=== PATIENT | male | born 1950 | race Two or more races ===

== ENCOUNTER → 2021-05-08 | Outpatient (CLI) | payer OTHER ==
[2021-05-08 08:59] LABS: Urine WBC None Seen /hpf (0 - 3)
[2021-05-08 09:13] LABS: Basophils # (auto) 0.1 10 ^3/uL (0-0.2); Basophils % (auto) 0.9 % (0.0-2.0); Eosinophils # (auto) 0.3 10 ^3/uL (0-0.8); Eosinophils % (auto) 5.5 % (0.0-7.0); Hemoglobin 14.2 g/dL (13.5-17.5); Lymphocytes # (auto) 1.2 10 ^3/uL (0.4-5.4); Lymphocytes % (auto) 20.1 % (10.0-50.0); Mean Corpuscular Hemoglobin 31.9 pg (28.0-32.0); Mean Corpuscular Hgb Conc. 34.7 g/dL (32.0-36.0); Mean Corpuscular Volume 91.9 fL (80.0-100.0); Monocytes # (auto) 0.4 10 ^3/uL (0-1.3); Neutrophils # (auto) 4.1 10 ^3/uL (1.6-8.6); Neutrophils % (auto) 66.5 % (37.0-80.0); Nucleated Red Blood Cells % 0.1 %; Red Blood Cells 4.46 10^6/uL (4.5-5.90); Red Cell Distribution Width 14.2 % (11.8-14.3); White Blood Cell 6.1 10^3/uL (4.4-10.8)
[2021-05-08 09:34] LABS: Urine Bacteria NONE SEEN /hpf (None Seen); Urine Blood Negative /uL (Negative); Urine Mucus FEW (None Seen); Urine Specific Gravity 1.011 (1.001-1.035)
[2021-05-08 09:41] LABS: Potassium 3.8 mmol/L (3.5-5.1)
[2021-05-08 09:51] LABS: Albumin 3.8 g/dL (3.4-5.0); BUN/Creatinine Ratio 13.2; Bilirubin, Total 0.6 mg/dL (0.2-1.0); Calcium 9.1 mg/dL (8.5-10.1); Total Protein 7.1 g/dL (6.4-8.2)
== END | disposition home or self-care (01) ==
LOC: LAB 08:23
PROVIDERS: ATTEND Student in an Organized Health Care Education/Training Program
DX: N40.1 Benign prostatic hyperplasia with lower urinary tract symptoms (principal); E11.9 Type 2 diabetes mellitus without complications; I10 Essential (primary) hypertension
CPT/HCPCS: 36415; 80053; 80061; 81001; 82043; 83036; 84153; 84443; 85025; 87086

== ENCOUNTER → 2021-07-02 | Outpatient (CLI) | payer OTHER ==
[2021-07-02 09:05] LABS: Basophils # (auto) 0 10 ^3/uL (0-0.2); Basophils % (auto) 0.9 % (0.0-2.0); Eosinophils # (auto) 0.2 10 ^3/uL (0-0.8); Eosinophils % (auto) 4.4 % (0.0-7.0); Hematocrit 40.6 % (41.0-53.0); Hemoglobin 14.1 g/dL (13.5-17.5); Lymphocytes # (auto) 1.1 10 ^3/uL (0.4-5.4); Mean Corpuscular Hemoglobin 31.5 pg (28.0-32.0); Mean Corpuscular Hgb Conc. 34.8 g/dL (32.0-36.0); Mean Corpuscular Volume 90.7 fL (80.0-100.0); Monocytes # (auto) 0.5 10 ^3/uL (0-1.3); Neutrophils # (auto) 3.2 10 ^3/uL (1.6-8.6); Neutrophils % (auto) 62.7 % (37.0-80.0); Nucleated Red Blood Cells % 0.1 %; Red Blood Cells 4.48 10^6/uL (4.5-5.90); Red Cell Distribution Width 13.7 % (11.8-14.3); White Blood Cell 5.1 10^3/uL (4.4-10.8)
[2021-07-02 09:08] LABS: Urine Bacteria NONE SEEN /hpf (None Seen); Urine Blood Negative /uL (Negative); Urine Specific Gravity 1.016 (1.001-1.035); Urine WBC 1 /hpf (0 - 3)
[2021-07-02 09:36] LABS: Potassium 3.8 mmol/L (3.5-5.1)
[2021-07-02 09:42] LABS: BUN/Creatinine Ratio 13.2; Calcium 9.2 mg/dL (8.5-10.1)
== END | disposition home or self-care (01) ==
LOC: LAB 08:10
PROVIDERS: ATTEND Student in an Organized Health Care Education/Training Program
DX: E11.9 Type 2 diabetes mellitus without complications (principal); I10 Essential (primary) hypertension
CPT/HCPCS: 36415; 80048; 81001; 83036; 85025

== ENCOUNTER → 2021-09-18 | Outpatient (CLI) | payer OTHER ==
[~2021-09-18] VITALS: Ht 167.6 cm; Wt 74.8 kg
[~2021-09-18] MED LIST: ADENOSINE 63 MG in GIVE UN-DILUTED 0 ML IV ONE; CEPH-509 PO
== END | disposition home or self-care (01) ==
LOC: XYW 08:02
PROVIDERS: ATTEND Internal Medicine
DX: I25.10 Atherosclerotic heart disease of native coronary artery without angina pectoris (principal); I10 Essential (primary) hypertension; E78.5 Hyperlipidemia, unspecified; E11.9 Type 2 diabetes mellitus without complications; Z95.5 Presence of coronary angioplasty implant and graft
CPT/HCPCS: 93017; J0153

== ENCOUNTER 2021-09-22 13:07 | Emergency (ER) | payer OTHER ==
[~2021-09-22] VITALS: Ht 167.6 cm; Wt 79.4 kg
[2021-09-22 14:43] VITALS: BP 136/66
[2021-09-22] MEDS ORDERED: CEPH-509 PO (15:35)
[2021-09-22] MEDS ORDERED: TETANUS-DIPTH-ACEL PERTUSSIS 0.5ML SYR Tdap IM ONE (15:45)
== END 2021-09-22 15:51 | disposition home or self-care (01) ==
LOC: ER 13:07
DX: S60.414A Abrasion of right ring finger, initial encounter (principal); I10 Essential (primary) hypertension; E11.9 Type 2 diabetes mellitus without complications; E78.5 Hyperlipidemia, unspecified; Z79.899 Other long term (current) drug therapy; W26.8XXA Contact with other sharp object(s), not elsewhere classified, initial encounter; Y93.89 Activity, other specified; Y92.89 Other specified places as the place of occurrence of the external cause; Y99.8 Other external cause status
CPT/HCPCS: 73120; 90471; 90715

== ENCOUNTER → 2022-05-07 | Outpatient (CLI) | payer OTHER ==
[~2022-05-07] MED LIST changes: -ADENOSINE 63 MG in GIVE UN-DILUTED 0 ML IV ONE
[2022-05-07 08:36] LABS: Urine WBC None Seen /hpf (0 - 3)
[2022-05-07 08:38] LABS: Basophils # (auto) 0.1 10 ^3/uL (0-0.2); Basophils % (auto) 0.8 % (0.0-2.0); Eosinophils # (auto) 0.1 10 ^3/uL (0-0.8); Eosinophils % (auto) 2.1 % (0.0-7.0); Hematocrit 42.3 % (41.0-53.0); Hemoglobin 14.1 g/dL (13.5-17.5); Lymphocytes # (auto) 1.2 10 ^3/uL (0.4-5.4); Lymphocytes % (auto) 18.9 % (10.0-50.0); Mean Corpuscular Hemoglobin 29.4 pg (28.0-32.0); Mean Corpuscular Hgb Conc. 33.4 g/dL (32.0-36.0); Mean Corpuscular Volume 88.1 fL (80.0-100.0); Monocytes # (auto) 0.7 10 ^3/uL (0-1.3); Monocytes % (auto) 10.6 % (0.0-12.0); Neutrophils # (auto) 4.3 10 ^3/uL (1.6-8.6); Neutrophils % (auto) 67.6 % (37.0-80.0); Nucleated Red Blood Cells % 0.1 %; Red Cell Distribution Width 15.4 % (11.8-14.3); White Blood Cell 6.4 10^3/uL (4.4-10.8)
[2022-05-07 08:48] LABS: Urine Bacteria NONE SEEN /hpf (None Seen); Urine Blood Negative /uL (Negative); Urine Specific Gravity 1.002 (1.001-1.035)
[2022-05-07 09:22] LABS: Albumin 4.3 g/dL (3.4-5.0)
[2022-05-07 09:29] LABS: BUN/Creatinine Ratio 14.6; Bilirubin, Total 0.9 mg/dL (0.2-1.0); Calcium 9.1 mg/dL (8.5-10.1); Total Protein 7.7 g/dL (6.4-8.2)
== END | disposition home or self-care (01) ==
LOC: LAB 08:24
PROVIDERS: ATTEND Student in an Organized Health Care Education/Training Program
DX: I10 Essential (primary) hypertension (principal); E11.9 Type 2 diabetes mellitus without complications
CPT/HCPCS: 36415; 80053; 80061; 81001; 83036; 85025

== ENCOUNTER 2022-06-18 13:40 | Emergency (ER) | payer OTHER ==
[~2022-06-18] VITALS: Ht 154.9 cm; Wt 76.0 kg
[2022-06-18 14:39] LABS: Urine Bacteria NONE SEEN /hpf (None Seen); Urine Blood Negative /uL (Negative); Urine Mucus FEW (None Seen); Urine Specific Gravity 1.019 (1.001-1.035); Urine WBC 2 /hpf (0 - 3)
[2022-06-18 14:55] LABS: Calcium 9.5 mg/dL (8.5-10.1); Magnesium 2.4 mg/dL (1.6-2.6); Potassium 3.7 mmol/L (3.5-5.1)
[2022-06-18 14:58] LABS: Basophils # (auto) 0 10 ^3/uL (0-0.2); Basophils % (auto) 0.7 % (0.0-2.0); Eosinophils # (auto) 0.1 10 ^3/uL (0-0.8); Hematocrit 42.3 % (41.0-53.0); Lymphocytes # (auto) 1.5 10 ^3/uL (0.4-5.4); Lymphocytes % (auto) 22.6 % (10.0-50.0); Mean Corpuscular Hemoglobin 29.1 pg (28.0-32.0); Monocytes # (auto) 0.7 10 ^3/uL (0-1.3); Monocytes % (auto) 10.8 % (0.0-12.0); Neutrophils # (auto) 4.1 10 ^3/uL (1.6-8.6); Neutrophils % (auto) 63.9 % (37.0-80.0); Nucleated Red Blood Cells % 0.2 %; Red Blood Cells 4.81 10^6/uL (4.5-5.90); Red Cell Distribution Width 15.1 % (11.8-14.3); White Blood Cell 6.4 10^3/uL (4.4-10.8)
[2022-06-18 14:59] LABS: BUN/Creatinine Ratio 19.1 (10.0-20.0); Bilirubin, Total 0.6 mg/dL (0.2-1.0); Total Protein 7.7 g/dL (6.4-8.2)
[2022-06-18 16:08] VITALS: BP 126/57
== END 2022-06-18 16:10 | disposition home or self-care (01) ==
LOC: ER 13:40
DX: R10.9 Unspecified abdominal pain (principal); K62.89 Other specified diseases of anus and rectum; R30.0 Dysuria; E11.9 Type 2 diabetes mellitus without complications; E78.5 Hyperlipidemia, unspecified; I11.9 Hypertensive heart disease without heart failure; Z98.61 Coronary angioplasty status
CPT/HCPCS: 36415; 74176; 80053; 81001; 83690; 83735; 85025; 93005

== ENCOUNTER → 2022-07-29 | Outpatient (CLI) | payer OTHER ==
[2022-07-29 08:54] LABS: Urine WBC None Seen /hpf (0 - 3)
[2022-07-29 09:20] LABS: Urine Bacteria NONE SEEN /hpf (None Seen); Urine Blood Negative /uL (Negative); Urine Specific Gravity 1.002 (1.001-1.035)
[2022-07-29 09:32] LABS: Basophils # (auto) 0 10 ^3/uL (0-0.2); Basophils % (auto) 0.8 % (0.0-2.0); Eosinophils # (auto) 0.1 10 ^3/uL (0-0.8); Eosinophils % (auto) 3.1 % (0.0-7.0); Hematocrit 42.6 % (41.0-53.0); Hemoglobin 14.3 g/dL (13.5-17.5); Lymphocytes % (auto) 21.8 % (10.0-50.0); Mean Corpuscular Hgb Conc. 33.6 g/dL (32.0-36.0); Mean Corpuscular Volume 86.4 fL (80.0-100.0); Monocytes # (auto) 0.5 10 ^3/uL (0-1.3); Monocytes % (auto) 10.7 % (0.0-12.0); Neutrophils % (auto) 63.6 % (37.0-80.0); Red Blood Cells 4.94 10^6/uL (4.5-5.90); Red Cell Distribution Width 14.8 % (11.8-14.3); White Blood Cell 4.7 10^3/uL (4.4-10.8)
[2022-07-29 10:02] LABS: BUN/Creatinine Ratio 12.5 (10.0-20.0); Calcium 8.7 mg/dL (8.5-10.1)
== END | disposition home or self-care (01) ==
LOC: LAB 08:43
PROVIDERS: ATTEND Student in an Organized Health Care Education/Training Program
DX: E11.9 Type 2 diabetes mellitus without complications (principal); I10 Essential (primary) hypertension
CPT/HCPCS: 36415; 80048; 81001; 83036; 85025

== ENCOUNTER → 2022-09-10 | Outpatient (CLI) | payer OTHER | END | disposition home or self-care (01) | LOC: LAB 09:55 | PROVIDERS: ATTEND Urology | DX: N40.1 Benign prostatic hyperplasia with lower urinary tract symptoms (principal) | CPT/HCPCS: 84153 ==

== ENCOUNTER → 2022-11-09 | Outpatient (CLI) | payer OTHER ==
[2022-11-09 08:17] LABS: Basophils # (auto) 0 10 ^3/uL (0-0.2); Basophils % (auto) 0.8 % (0.0-2.0); Eosinophils # (auto) 0.1 10 ^3/uL (0-0.8); Eosinophils % (auto) 2.5 % (0.0-7.0); Hematocrit 40.4 % (41.0-53.0); Hemoglobin 13.3 g/dL (13.5-17.5); Lymphocytes % (auto) 18.2 % (10.0-50.0); Mean Corpuscular Hemoglobin 28.1 pg (28.0-32.0); Mean Corpuscular Volume 85.2 fL (80.0-100.0); Monocytes # (auto) 0.5 10 ^3/uL (0-1.3); Monocytes % (auto) 8.8 % (0.0-12.0); Neutrophils % (auto) 69.7 % (37.0-80.0); Red Blood Cells 4.74 10^6/uL (4.5-5.90); Red Cell Distribution Width 15.9 % (11.8-14.3); White Blood Cell 5.7 10^3/uL (4.4-10.8)
[2022-11-09 08:33] LABS: Urine Bacteria NONE SEEN /hpf (None Seen); Urine Blood TRACE /uL (Negative); Urine Clarity Clear (Clear); Urine Color Yellow (Yellow); Urine Mucus FEW (None Seen); Urine Protein, UAD 1+ (Negative); Urine Specific Gravity 1.016 (1.001-1.035); Urine Urobilinogen Normal (Negative); Urine WBC 2 /hpf (0 - 3); Urine pH 5.5 (5.0-8.0)
[2022-11-09 09:05] LABS: Albumin 3.8 g/dL (3.4-5.0); Calcium 8.8 mg/dL (8.5-10.1); Potassium 4.4 mmol/L (3.5-5.1)
[2022-11-09 09:11] LABS: Bilirubin, Total 0.4 mg/dL (0.2-1.0)
== END | disposition home or self-care (01) ==
LOC: LAB 08:01
PROVIDERS: ATTEND Student in an Organized Health Care Education/Training Program
DX: I10 Essential (primary) hypertension (principal); E11.9 Type 2 diabetes mellitus without complications; N40.1 Benign prostatic hyperplasia with lower urinary tract symptoms
CPT/HCPCS: 36415; 80053; 81001; 83036; 84153; 85025; 87086

== ENCOUNTER 2023-01-28 08:17 | Day surgery (SDC) | payer OTHER ==
[2023-01-26 15:21] LABS: Basophils # (auto) 0 10 ^3/uL (0-0.2); Basophils % (auto) 0.3 % (0.0-2.0); Eosinophils # (auto) 0.1 10 ^3/uL (0-0.8); Eosinophils % (auto) 0.7 % (0.0-7.0); Hematocrit 40.5 % (41.0-53.0); Hemoglobin 13.4 g/dL (13.5-17.5); Lymphocytes # (auto) 0.5 10 ^3/uL (0.4-5.4); Lymphocytes % (auto) 6.7 % (10.0-50.0); Mean Corpuscular Hemoglobin 28.4 pg (28.0-32.0); Mean Corpuscular Hgb Conc. 33.2 g/dL (32.0-36.0); Mean Corpuscular Volume 85.8 fL (80.0-100.0); Monocytes # (auto) 0.7 10 ^3/uL (0-1.3); Monocytes % (auto) 10.2 % (0.0-12.0); Neutrophils # (auto) 5.9 10 ^3/uL (1.6-8.6); Neutrophils % (auto) 82.1 % (37.0-80.0); Nucleated Red Blood Cells % 0.1 %; Red Blood Cells 4.72 10^6/uL (4.5-5.90); Red Cell Distribution Width 15.6 % (11.8-14.3); White Blood Cell 7.2 10^3/uL (4.4-10.8)
[2023-01-26 15:35] LABS: Urine Bacteria NONE SEEN /hpf (None Seen); Urine Blood TRACE /uL (Negative); Urine Clarity Clear (Clear); Urine Color Yellow (Yellow); Urine Protein, UAD 1+ (Negative); Urine Specific Gravity 1.013 (1.001-1.035); Urine Urobilinogen Normal (Negative); Urine WBC 2 /hpf (0 - 3); Urine pH 6.5 (5.0-8.0)
[2023-01-26 15:39] LABS: INR 1.15 (0.9-1.15); Partial Thromboplastin Time 34.1 SEC (24.5-34.5)
[2023-01-26 16:04] LABS: Alanine Aminotransferase 22 U/L (7-40); Albumin 4.7 g/dL (3.2-4.8); Alkaline Phosphatase 59 U/L (46-116); Anion Gap 6 (5-15); Aspartate Aminotransferase 19 U/L (13-40); BUN/Creatinine Ratio 8.6 (10.0-20.0); Bilirubin, Total 1.1 mg/dL (0.2-1.0); Blood Urea Nitrogen 9 mg/dL (9-23); Calcium 9.3 mg/dL (8.7-10.4); Carbon Dioxide 26 mmol/L (20-30); Chloride 98 mmol/L (98-107); Glucose 98 mg/dL (74-106); Potassium 3.5 mmol/L (3.5-5.1); Sodium 130 mmol/L (136-145); Total Protein 7.3 g/dL (5.7-8.2)
[~2023-01-28] VITALS: Ht 185.4 cm; Wt 74.4 kg
[~2023-01-28 08:17] MED LIST changes: +AMLO1TAB23 PO; +ASPI1TAB20 PO; -CEPH-509 PO; +CLOP75TA28 PO; +METF-372 PO; +METO-6 PO; +ROSU1TAB15 PO; +TAMS0.4C36 PO
[2023-01-28] MEDS ORDERED: CIPROFLOXACIN 400MG/200ML 200 ML IV ONE (08:53)
[2023-01-28] MEDS ORDERED: DexAMETHasone SOD PHOS 10MG/1ML VIAL INJ ONE (09:55)
[2023-01-28] MEDS ORDERED: PROPOFOL 10 MG/ML 20 ML IV ONE (09:55)
[2023-01-28] MEDS ORDERED: GLYCOPYRROLATE 0.2 MG/ML 1ML VIAL ONE (09:55)
[2023-01-28] MEDS ORDERED: ONDANSETRON HCL 4 MG/2 ML VIAL ONE (09:55)
[2023-01-28] MEDS ORDERED: fentaNYL CITRATE 100 MCG/2 ML VL ONE (09:55)
[2023-01-28] MEDS ORDERED: KETOROLAC TROMETH 30 MG/ML 1ML VIAL ONE (09:55)
[2023-01-28 11:12] VITALS: TEMP 97.9; O2SAT 100
[2023-01-28 12:00] VITALS: BP 122/56; PULSE 60; RESP 12; O2SAT 97
== END 2023-01-28 12:02 | disposition home or self-care (01) ==
LOC: SUR 08:17
PROVIDERS: ATTEND Urology
DX: N40.1 Benign prostatic hyperplasia with lower urinary tract symptoms (principal); R35.1 Nocturia; E11.9 Type 2 diabetes mellitus without complications; Z79.84 Long term (current) use of oral hypoglycemic drugs
CPT/HCPCS: 36415; 52441; 52442; 80053; 81001; 82962; 85025; 85610; 85730; 87086; J0744; J1100; J1885; J2405; J2704; J3010; J7030; L8699

== ENCOUNTER → 2023-02-01 | Outpatient (CLI) | payer OTHER ==
[2023-02-01 08:33] LABS: Basophils # (auto) 0 10 ^3/uL (0-0.2); Basophils % (auto) 0.8 % (0.0-2.0); Eosinophils # (auto) 0.1 10 ^3/uL (0-0.8); Eosinophils % (auto) 1.5 % (0.0-7.0); Hematocrit 40.5 % (41.0-53.0); Hemoglobin 13.5 g/dL (13.5-17.5); Lymphocytes % (auto) 18.6 % (10.0-50.0); Mean Corpuscular Hemoglobin 28.3 pg (28.0-32.0); Mean Corpuscular Hgb Conc. 33.2 g/dL (32.0-36.0); Mean Corpuscular Volume 85.1 fL (80.0-100.0); Monocytes # (auto) 0.6 10 ^3/uL (0-1.3); Monocytes % (auto) 11.2 % (0.0-12.0); Neutrophils # (auto) 3.6 10 ^3/uL (1.6-8.6); Neutrophils % (auto) 67.9 % (37.0-80.0); Nucleated Red Blood Cells % 0.1 %; Red Blood Cells 4.76 10^6/uL (4.5-5.90); Red Cell Distribution Width 15.7 % (11.8-14.3); White Blood Cell 5.3 10^3/uL (4.4-10.8)
[2023-02-01 08:51] LABS: Urine Bacteria NONE SEEN /hpf (None Seen); Urine Blood 3+ /uL (Negative); Urine Clarity Clear (Clear); Urine Color Yellow (Yellow); Urine Protein, UAD 1+ (Negative); Urine Specific Gravity 1.009 (1.001-1.035); Urine Urobilinogen Normal (Negative); Urine WBC 5 /hpf (0 - 3); Urine pH 6.5 (5.0-8.0)
[2023-02-01 09:17] LABS: Alanine Aminotransferase 37 U/L (7-40); Albumin 4.4 g/dL (3.2-4.8); Alkaline Phosphatase 45 U/L (46-116); Anion Gap 4 (5-15); Aspartate Aminotransferase 29 U/L (13-40); BUN/Creatinine Ratio 9.5 (10.0-20.0); Blood Urea Nitrogen 11 mg/dL (9-23); Calcium 9.3 mg/dL (8.5-10.1); Carbon Dioxide 29 mmol/L (20-30); Chloride 100 mmol/L (98-107); Cholesterol 83 mg/dL (< 200); Glucose 122 mg/dL (74-106); LDL Cholesterol 35 mg/dL (< 100); Potassium 3.9 mmol/L (3.5-5.1); Sodium 133 mmol/L (136-145); Triglycerides 92 mg/dL (< 150)
[2023-02-01 09:18] LABS: Bilirubin, Total 0.7 mg/dL (0.2-1.0); HDL Cholesterol 30 mg/dL (40-59); Total Protein 6.7 g/dL (5.7-8.2)
== END | disposition home or self-care (01) ==
LOC: LAB 08:16
DX: I10 Essential (primary) hypertension (principal); E11.8 Type 2 diabetes mellitus with unspecified complications
CPT/HCPCS: 36415; 80053; 80061; 81001; 82306; 83036; 84443; 85025

== ENCOUNTER 2023-02-22 14:37 | Inpatient (IN) | payer OTHER ==
[~2023-02-22] VITALS: Ht 188 cm; Wt 75.1 kg
[2023-02-22 15:01] LABS: Basophils # (auto) 0.1 10 ^3/uL (0-0.2); Eosinophils # (auto) 0.2 10 ^3/uL (0-0.8); Hemoglobin 13.8 g/dL (13.5-17.5); Lymphocytes # (auto) 1.4 10 ^3/uL (0.4-5.4); Lymphocytes % (auto) 25.6 % (10.0-50.0); Mean Corpuscular Hemoglobin 28.2 pg (28.0-32.0); Mean Corpuscular Hgb Conc. 32.9 g/dL (32.0-36.0); Mean Corpuscular Volume 85.9 fL (80.0-100.0); Monocytes # (auto) 0.6 10 ^3/uL (0-1.3); Monocytes % (auto) 10.5 % (0.0-12.0); Neutrophils # (auto) 3.2 10 ^3/uL (1.6-8.6); Neutrophils % (auto) 59.9 % (37.0-80.0); Nucleated Red Blood Cells % 0.1 %; Red Blood Cells 4.89 10^6/uL (4.5-5.90); Red Cell Distribution Width 15.4 % (11.8-14.3); White Blood Cell 5.4 10^3/uL (4.4-10.8)
[2023-02-22 15:17] LABS: INR 1.09 (0.9-1.15); Partial Thromboplastin Time 33.7 SEC (24.5-34.5); Prothrombin Time 11.4 sec (9.3-11.8)
[2023-02-22 15:21] LABS: Alanine Aminotransferase 19 U/L (7-40); Alkaline Phosphatase 61 U/L (46-116); Calcium 9.6 mg/dL (8.7-10.4)
[2023-02-22 15:22] LABS: Albumin 4.7 g/dL (3.2-4.8); Anion Gap 8 (5-15); Aspartate Aminotransferase 18 U/L (13-40); BUN/Creatinine Ratio 13.3 (10.0-20.0); Bilirubin, Total 0.6 mg/dL (0.2-1.0); Blood Urea Nitrogen 13 mg/dL (9-23); Carbon Dioxide 24 mmol/L (20-30); Chloride 103 mmol/L (98-107); Glucose 145 mg/dL (74-106); Sodium 135 mmol/L (136-145); Total Protein 6.9 g/dL (5.7-8.2)
[2023-02-22 15:30] LABS: Urine Bacteria NONE SEEN /hpf (None Seen); Urine Blood TRACE /uL (Negative); Urine Clarity Clear (Clear); Urine Color Colorless (Yellow); Urine Protein, UAD TRACE (Negative); Urine Specific Gravity 1.008 (1.001-1.035); Urine Urobilinogen Normal (Negative); Urine WBC 1 /hpf (0 - 3); Urine pH 5.5 (5.0-8.0)
[2023-02-22] MEDS ORDERED: NITROGLYCERIN 0.4 MG SL TAB SL ONE (15:45)
[2023-02-22] MEDS ORDERED: ASPirin 325 MG TAB PO ONE (15:45)
[2023-02-22] MEDS ORDERED: ONDANSETRON HCL 4 MG/2 ML VIAL IV PRN (16:45)
[2023-02-22] MEDS ORDERED: MORPHINE SULFATE INJ 2 MG/ml SYRG IV PRN (16:45)
[2023-02-22] MEDS ORDERED: NITROGLYCERIN 0.4 MG SL TAB SL PRN (16:45)
[2023-02-22] MEDS ORDERED: ACETAMINOPHEN 325 MG TAB PO PRN (16:45)
[2023-02-22] MEDS ORDERED: FIN5T (16:49)
[2023-02-22 19:26] VITALS: PULSE 56; RESP 18; O2SAT 98
[2023-02-22 21:31] VITALS: BP 128/71; PULSE 56; PULSE 81; RESP 16; RESP 18; TEMP 98
[2023-02-22 22:00] VITALS: BP 128/71; PULSE 56; RESP 19; TEMP 97.9; O2SAT 99
[2023-02-23] VITALS (13 sets, daily range): BP systolic 96–147; BP diastolic 56–75; PULSE 55–64; RESP 12–20; TEMP 97.5–98.3; O2SAT 96–100
[2023-02-23 06:07] LABS: Albumin 4.1 g/dL (3.2-4.8); Alkaline Phosphatase 44 U/L (46-116); Anion Gap 5 (5-15); Aspartate Aminotransferase 14 U/L (13-40); BUN/Creatinine Ratio 9.6 (10.0-20.0); Bilirubin, Total 0.6 mg/dL (0.2-1.0); Blood Urea Nitrogen 11 mg/dL (9-23); Calcium 9.3 mg/dL (8.5-10.1); Carbon Dioxide 25 mmol/L (20-30); Chloride 107 mmol/L (98-107); Glucose 123 mg/dL (74-106); Sodium 137 mmol/L (136-145)
[2023-02-23 06:08] LABS: Total Protein 6.2 g/dL (5.7-8.2)
[2023-02-23 06:29] LABS: Alanine Aminotransferase 18 U/L (7-40)
[2023-02-23 06:38] LABS: Basophils # (auto) 0 10 ^3/uL (0-0.2); Basophils % (auto) 0.8 % (0.0-2.0); Eosinophils # (auto) 0.2 10 ^3/uL (0-0.8); Eosinophils % (auto) 3.4 % (0.0-7.0); Hematocrit 39.1 % (41.0-53.0); Hemoglobin 12.8 g/dL (13.5-17.5); Lymphocytes # (auto) 1.2 10 ^3/uL (0.4-5.4); Lymphocytes % (auto) 25.3 % (10.0-50.0); Mean Corpuscular Hgb Conc. 32.6 g/dL (32.0-36.0); Mean Corpuscular Volume 85.8 fL (80.0-100.0); Monocytes # (auto) 0.6 10 ^3/uL (0-1.3); Monocytes % (auto) 13.2 % (0.0-12.0); Neutrophils # (auto) 2.7 10 ^3/uL (1.6-8.6); Neutrophils % (auto) 57.3 % (37.0-80.0); Nucleated Red Blood Cells % 0.2 %; Red Blood Cells 4.56 10^6/uL (4.5-5.90); Red Cell Distribution Width 15.4 % (11.8-14.3); White Blood Cell 4.7 10^3/uL (4.4-10.8)
[2023-02-23] MEDS ORDERED: DEXTROSE (50%) 50ML SYRG IV PRN (09:45)
[2023-02-23] MEDS: CLOPIDOGREL BISULFATE 75 MG TAB PO SCH (09:46)
[2023-02-23] MEDS: PANTOPRAZOLE 40 MG TAB PO SCH (09:46)
[2023-02-23] MEDS: FINASTERIDE 5 MG TAB PO SCH (09:47)
[2023-02-23] MEDS: METOPROLOL SUCCINATE XL 50 MG TAB PO SCH (09:47)
[2023-02-23] MEDS: TAMSULOSIN HYDROCHLORIDE 0.4 MG CAP PO SCH (09:47)
[2023-02-23] MEDS: ASPirin-EC 81 mg tab PO SCH (09:48)
[2023-02-23] MEDS: LOSARTAN POTASSIUM 25 MG TAB PO SCH (09:51)
[2023-02-23] MEDS ORDERED: amLODIPine BESYLATE 5 MG TAB PO SCH (10:00)
[2023-02-23] MEDS: LIDOCAINE 5% TOPICAL PATCH TOP SCH (10:00)
[2023-02-23] MEDS ORDERED: Rosuvastatin Calcium 40 MG PO SCH (10:00)
[2023-02-23] MEDS ORDERED: ONDANSETRON HCL 4 MG/2 ML VIAL IV ONE (11:15)
[2023-02-23] MEDS: ACCU-CHEK COMFORT CURVE STRIP VI SCH ×3 (11:30→22:00)
[2023-02-23] MEDS: InsuLIN REG 1unit/0.01ml Soln (100units/ml) SC SCH ×3 (11:30→21:10)
[2023-02-23] MEDS ORDERED: HEPARIN SODIUM (PORCINE) 5000 UNITS/ML 1ML VIAL ONE (11:48)
[2023-02-23] MEDS ORDERED: ANGIOMAX 250 MG VIAL IV ONE (11:48)
[2023-02-23] MEDS ORDERED: VERAPAMIL 2.5MG/ML INJ 2ML VIAL IV ONE (11:48)
[2023-02-23] MEDS ORDERED: fentaNYL CITRATE 100 MCG/2 ML VL ONE (11:48)
[2023-02-23] MEDS ORDERED: SODIUM CHL 0.9% 50 ML ONE (11:49)
[2023-02-23] MEDS ORDERED: MIDAZOLAM HCL 2MG/2ML 2ml VIAL (1mg/ml) ONE (11:49)
[2023-02-23] MEDS ORDERED: IOHEXOL 350 MG/ML 100ML IJ ONE ×3 (11:49→12:39)
[2023-02-23] MEDS ORDERED: EPINEPHrine HCL 1 MG/10 ML SYRG ONE (12:23)
[2023-02-23] MEDS ORDERED: ATROPINE SULF 1 MG/10ml SYR ONE (12:23)
[2023-02-23] MEDS ORDERED: ATORVASTATIN 20 MG TAB PO SCH (22:00)
[2023-02-24 05:00] VITALS: BP 107/62; PULSE 57; RESP 17; TEMP 98; O2SAT 98
[2023-02-24 06:13] LABS: Basophils # (auto) 0 10 ^3/uL (0-0.2); Basophils % (auto) 0.5 % (0.0-2.0); Eosinophils # (auto) 0.2 10 ^3/uL (0-0.8); Eosinophils % (auto) 2.3 % (0.0-7.0); Hematocrit 37.6 % (41.0-53.0); Hemoglobin 12.5 g/dL (13.5-17.5); Lymphocytes % (auto) 14.2 % (10.0-50.0); Mean Corpuscular Hemoglobin 28.3 pg (28.0-32.0); Mean Corpuscular Hgb Conc. 33.2 g/dL (32.0-36.0); Mean Corpuscular Volume 85.2 fL (80.0-100.0); Monocytes # (auto) 0.7 10 ^3/uL (0-1.3); Monocytes % (auto) 10.6 % (0.0-12.0); Neutrophils # (auto) 4.9 10 ^3/uL (1.6-8.6); Neutrophils % (auto) 72.4 % (37.0-80.0); Nucleated Red Blood Cells % 0.1 %; Red Blood Cells 4.41 10^6/uL (4.5-5.90); Red Cell Distribution Width 15.4 % (11.8-14.3); White Blood Cell 6.8 10^3/uL (4.4-10.8)
[2023-02-24 06:24] LABS: Alanine Aminotransferase 22 U/L (7-40); Alkaline Phosphatase 44 U/L (46-116); Anion Gap 7 (5-15); Aspartate Aminotransferase 15 U/L (13-40); BUN/Creatinine Ratio 11.3 (10.0-20.0); Blood Urea Nitrogen 12 mg/dL (9-23); Calcium 9.5 mg/dL (8.5-10.1); Carbon Dioxide 27 mmol/L (20-30); Chloride 103 mmol/L (98-107); Glucose 124 mg/dL (74-106); Potassium 4.1 mmol/L (3.5-5.1); Sodium 137 mmol/L (136-145)
[2023-02-24 06:25] LABS: Bilirubin, Total 0.7 mg/dL (0.2-1.0); Total Protein 6.1 g/dL (5.7-8.2)
[2023-02-24] MEDS: InsuLIN REG 1unit/0.01ml Soln (100units/ml) SC SCH ×2 (07:00→11:30)
[2023-02-24] MEDS: ACCU-CHEK COMFORT CURVE STRIP VI SCH ×2 (07:06→11:30)
[2023-02-24 07:30] VITALS: PULSE 55; RESP 18; O2SAT 98
[2023-02-24 08:00] VITALS: PULSE 55
[2023-02-24] MEDS ORDERED: NITR0.4S29 SL (08:50)
[2023-02-24 09:00] VITALS: BP 112/58; PULSE 55; RESP 20; TEMP 98.3; O2SAT 98
[2023-02-24] MEDS: ASPirin-EC 81 mg tab PO SCH (09:53)
[2023-02-24] MEDS: METOPROLOL SUCCINATE XL 50 MG TAB PO SCH (09:54)
[2023-02-24] MEDS: TAMSULOSIN HYDROCHLORIDE 0.4 MG CAP PO SCH (09:54)
[2023-02-24] MEDS: LOSARTAN POTASSIUM 25 MG TAB PO SCH (09:55)
[2023-02-24] MEDS: FINASTERIDE 5 MG TAB PO SCH (09:55)
[2023-02-24] MEDS: PANTOPRAZOLE 40 MG TAB PO SCH (09:55)
[2023-02-24] MEDS: CLOPIDOGREL BISULFATE 75 MG TAB PO SCH (09:55)
[2023-02-24] MEDS: LIDOCAINE 5% TOPICAL PATCH TOP SCH (10:00)
== END 2023-02-24 12:18 | disposition home or self-care (01) | DRG 322 ==
LOC: ER 14:37 → TELE 16:41 → TELE-EAST 21:45
PROVIDERS: ADMIT Internal Medicine; ATTEND Internal Medicine
PROC: 027034Z Dilation of Coronary Artery, One Artery with Drug-eluting Intraluminal Device, Percutaneous Approach (ICD-10-PCS; principal; 2023-02-23)
PROC: 4A023N7 Measurement of Cardiac Sampling and Pressure, Left Heart, Percutaneous Approach (ICD-10-PCS; 2023-02-23)
PROC: B211YZZ Fluoroscopy of Multiple Coronary Arteries using Other Contrast (ICD-10-PCS; 2023-02-23)
DX: T82.855A Stenosis of coronary artery stent, initial encounter (principal); I25.110 Atherosclerotic heart disease of native coronary artery with unstable angina pectoris; I10 Essential (primary) hypertension; E78.5 Hyperlipidemia, unspecified; N40.0 Benign prostatic hyperplasia without lower urinary tract symptoms; E11.9 Type 2 diabetes mellitus without complications; K21.9 Gastro-esophageal reflux disease without esophagitis; Y83.1 Surgical operation with implant of artificial internal device as the cause of abnormal reaction of the patient, or of later complication, without mention of misadventure at the time of the procedure; Z79.02 Long term (current) use of antithrombotics/antiplatelets; Z82.49 Family history of ischemic heart disease and other diseases of the circulatory system
CPT/HCPCS: 36415; 71045; 80053; 81001; 82962; 84484; 85025; 85379; 85610; 85730; 93005; 93306; 97116; 97163; 97530; 99152; G0378; J1815; J2250; J2405

== ENCOUNTER 2023-03-26 11:30 | Emergency (ER) | payer OTHER ==
[~2023-03-26] VITALS: Ht 167.6 cm; Wt 73.9 kg
[~2023-03-26 11:30] MED LIST changes: +FIN5T; +NITR0.4S29 SL
[2023-03-26 13:35] LABS: Basophils # (auto) 0 10 ^3/uL (0-0.2); Basophils % (auto) 0.6 % (0.0-2.0); Eosinophils # (auto) 0.1 10 ^3/uL (0-0.8); Eosinophils % (auto) 1.2 % (0.0-7.0); Hematocrit 39.7 % (41.0-53.0); Hemoglobin 13.1 g/dL (13.5-17.5); Lymphocytes # (auto) 1.1 10 ^3/uL (0.4-5.4); Lymphocytes % (auto) 17.6 % (10.0-50.0); Mean Corpuscular Hemoglobin 28.2 pg (28.0-32.0); Mean Corpuscular Hgb Conc. 33.1 g/dL (32.0-36.0); Mean Corpuscular Volume 85.2 fL (80.0-100.0); Monocytes # (auto) 0.7 10 ^3/uL (0-1.3); Monocytes % (auto) 11.4 % (0.0-12.0); Neutrophils # (auto) 4.3 10 ^3/uL (1.6-8.6); Neutrophils % (auto) 69.2 % (37.0-80.0); Nucleated Red Blood Cells % 0.1 %; Red Blood Cells 4.66 10^6/uL (4.5-5.90); Red Cell Distribution Width 15.3 % (11.8-14.3); White Blood Cell 6.2 10^3/uL (4.4-10.8)
[2023-03-26 14:06] LABS: Alanine Aminotransferase 18 U/L (7-40); Albumin 4.6 g/dL (3.2-4.8); Alkaline Phosphatase 64 U/L (46-116); Anion Gap 5 (5-15); Aspartate Aminotransferase 13 U/L (13-40); BUN/Creatinine Ratio 12.9 (10.0-20.0); Bilirubin, Total 0.7 mg/dL (0.2-1.0); Blood Urea Nitrogen 11 mg/dL (9-23); Calcium 9.6 mg/dL (8.7-10.4); Carbon Dioxide 28 mmol/L (20-30); Chloride 102 mmol/L (98-107); Glucose 106 mg/dL (74-106); Lipase 51 U/L (12-53); Potassium 4.3 mmol/L (3.5-5.1); Sodium 135 mmol/L (136-145)
[2023-03-26 14:07] LABS: Total Protein 6.9 g/dL (5.7-8.2)
[2023-03-26] MEDS ORDERED: IBU600T PO (14:51)
[2023-03-26] MEDS ORDERED: HYDROcodone-ACET 10/325MG TAB PO ONE (15:00)
[2023-03-26 15:11] VITALS: BP 133/69; PULSE 80; RESP 18; O2SAT 100
== END 2023-03-26 15:12 | disposition home or self-care (01) ==
LOC: ER 11:30
DX: R10.9 Unspecified abdominal pain (principal); I10 Essential (primary) hypertension; E11.9 Type 2 diabetes mellitus without complications; Z86.73 Personal history of transient ischemic attack (TIA), and cerebral infarction without residual deficits; Z98.61 Coronary angioplasty status
CPT/HCPCS: 36415; 74176; 80053; 83690; 84484; 85025

== ENCOUNTER 2023-06-08 09:41 | Day surgery (SDC) | payer OTHER ==
[2023-06-03 09:34] LABS: Basophils # (auto) 0.1 10 ^3/uL (0-0.2); Eosinophils # (auto) 0.1 10 ^3/uL (0-0.8); Eosinophils % (auto) 2.1 % (0.0-7.0); Hemoglobin 13.9 g/dL (13.5-17.5); Lymphocytes # (auto) 1.3 10 ^3/uL (0.4-5.4); Lymphocytes % (auto) 22.8 % (10.0-50.0); Mean Corpuscular Hemoglobin 28.7 pg (28.0-32.0); Mean Corpuscular Hgb Conc. 33.2 g/dL (32.0-36.0); Mean Corpuscular Volume 86.4 fL (80.0-100.0); Monocytes # (auto) 0.5 10 ^3/uL (0-1.3); Monocytes % (auto) 9.4 % (0.0-12.0); Neutrophils # (auto) 3.6 10 ^3/uL (1.6-8.6); Neutrophils % (auto) 64.7 % (37.0-80.0); Nucleated Red Blood Cells % 0.1 %; Red Blood Cells 4.86 10^6/uL (4.5-5.90); Red Cell Distribution Width 15.8 % (11.8-14.3); White Blood Cell 5.6 10^3/uL (4.4-10.8)
[2023-06-03 09:48] LABS: INR 1.11 (0.9-1.15); Partial Thromboplastin Time 33.3 SEC (24.5-34.5); Prothrombin Time 11.6 sec (9.3-11.8)
[2023-06-03 10:22] LABS: Alanine Aminotransferase 19 U/L (7-40); Albumin 4.8 g/dL (3.2-4.8); Alkaline Phosphatase 57 U/L (46-116); Anion Gap 4 (5-15); Aspartate Aminotransferase 18 U/L (13-40); BUN/Creatinine Ratio 9.4 (10.0-20.0); Bilirubin, Total 0.7 mg/dL (0.2-1.0); Blood Urea Nitrogen 9 mg/dL (9-23); Calcium 9.8 mg/dL (8.5-10.1); Carbon Dioxide 27 mmol/L (20-30); Chloride 105 mmol/L (98-107); Glucose 114 mg/dL (74-106); Potassium 4.2 mmol/L (3.5-5.1); Sodium 136 mmol/L (136-145); Total Protein 7.2 g/dL (5.7-8.2)
[~2023-06-08] VITALS: Ht 170.2 cm; Wt 73.5 kg
[2023-06-08] MEDS ORDERED: SODIUM CHLORIDE LOCK 10 ML ONE (09:48)
[2023-06-08 11:18] VITALS: O2SAT 100
[2023-06-08] MEDS: fentaNYL CITRATE 100 MCG/2 ML VL ONE (11:22)
[2023-06-08] MEDS: diphenhdrAMINE HCL 50 MG/1 ML VL ONE (11:22)
[2023-06-08] MEDS: MIDAZOLAM HCL 5 MG/ML-1ML VIAL ONE (11:22)
[2023-06-08 11:45] VITALS: RESP 8; TEMP 98.9; O2SAT 100
[2023-06-08 12:31] VITALS: BP 115/60; PULSE 67; RESP 10; O2SAT 97
== END 2023-06-08 12:45 | disposition home or self-care (01) ==
LOC: GI 09:41
PROVIDERS: ATTEND Internal Medicine Gastroenterology
DX: K59.09 Other constipation (principal); D12.7 Benign neoplasm of rectosigmoid junction; D12.3 Benign neoplasm of transverse colon; K57.30 Diverticulosis of large intestine without perforation or abscess without bleeding; K64.8 Other hemorrhoids; K63.89 Other specified diseases of intestine; E11.9 Type 2 diabetes mellitus without complications; E78.5 Hyperlipidemia, unspecified; I25.10 Atherosclerotic heart disease of native coronary artery without angina pectoris; I10 Essential (primary) hypertension; Z96.651 Presence of right artificial knee joint; Z86.010 Personal history of colon polyps; Z82.49 Family history of ischemic heart disease and other diseases of the circulatory system; Z79.82 Long term (current) use of aspirin; Z79.01 Long term (current) use of anticoagulants; Z79.84 Long term (current) use of oral hypoglycemic drugs; Z79.899 Other long term (current) drug therapy; Z98.890 Other specified postprocedural states; Z88.2 Allergy status to sulfonamides
CPT/HCPCS: 36415; 45380; 45385; 80053; 82962; 85025; 85610; 85730; 88305; J1200; J2250; J3010; J7030; 99152

== ENCOUNTER → 2023-07-27 | Outpatient (CLI) | payer OTHER ==
[~2023-07-27] MED LIST changes: -ROSU1TAB15 PO; +ROSU40TA47 PO
[2023-07-27 09:25] LABS: Urine Bacteria None Seen /hpf (None Seen)
[2023-07-27 09:29] LABS: Basophils # (auto) 0 10 ^3/uL (0-0.2); Basophils % (auto) 0.8 % (0.0-2.0); Eosinophils # (auto) 0.1 10 ^3/uL (0-0.8); Eosinophils % (auto) 1.6 % (0.0-7.0); Hematocrit 40.6 % (41.0-53.0); Hemoglobin 13.3 g/dL (13.5-17.5); Lymphocytes # (auto) 1.2 10 ^3/uL (0.4-5.4); Lymphocytes % (auto) 20.6 % (10.0-50.0); Mean Corpuscular Hemoglobin 27.6 pg (28.0-32.0); Mean Corpuscular Hgb Conc. 32.7 g/dL (32.0-36.0); Mean Corpuscular Volume 84.5 fL (80.0-100.0); Monocytes # (auto) 0.6 10 ^3/uL (0-1.3); Monocytes % (auto) 9.5 % (0.0-12.0); Neutrophils % (auto) 67.5 % (37.0-80.0); Red Cell Distribution Width 15.2 % (11.8-14.3); White Blood Cell 5.9 10^3/uL (4.4-10.8)
[2023-07-27 09:35] LABS: Urine Blood Negative /uL (Negative); Urine Clarity Clear (Clear); Urine Color Yellow (Yellow); Urine Mucus FEW (None Seen); Urine Protein, UAD 1+ (Negative); Urine Specific Gravity 1.021 (1.001-1.035); Urine Urobilinogen Normal (Negative); Urine WBC 1 /hpf (0 - 3); Urine pH 5.5 (5.0-9.0)
[2023-07-27 10:09] LABS: Creatinine, Urine 108.99 mg/dL (30.0-125.0)
[2023-07-27 10:13] LABS: Alanine Aminotransferase 18 U/L (7-40); Albumin 4.6 g/dL (3.2-4.8); Alkaline Phosphatase 53 U/L (46-116); Anion Gap 6 (5-15); Aspartate Aminotransferase 20 U/L (13-40); BUN/Creatinine Ratio 13.5 (10.0-20.0); Bilirubin, Total 0.8 mg/dL (0.2-1.0); Blood Urea Nitrogen 13 mg/dL (9-23); Calcium 9.7 mg/dL (8.5-10.1); Carbon Dioxide 25 mmol/L (20-30); Chloride 104 mmol/L (98-107); Cholesterol 126 mg/dL (< 200); Glucose 123 mg/dL (74-106); HDL Cholesterol 37 mg/dL (40-59); LDL Cholesterol 74 mg/dL (< 100); Sodium 135 mmol/L (136-145); Total Protein 7.3 g/dL (5.7-8.2); Triglycerides 113 mg/dL (< 150)
== END | disposition home or self-care (01) ==
LOC: LAB 09:16
PROVIDERS: ATTEND Student in an Organized Health Care Education/Training Program
DX: I10 Essential (primary) hypertension (principal); E11.9 Type 2 diabetes mellitus without complications; N40.0 Benign prostatic hyperplasia without lower urinary tract symptoms
CPT/HCPCS: 36415; 80053; 80061; 81001; 82043; 82570; 83036; 84153; 85025

== ENCOUNTER → 2023-09-22 | Outpatient (CLI) | payer OTHER | END | disposition home or self-care (01) | LOC: LAB 07:53 | PROVIDERS: ATTEND Urology | DX: N40.1 Benign prostatic hyperplasia with lower urinary tract symptoms (principal) | CPT/HCPCS: 84153 ==

== ENCOUNTER → 2024-01-28 | Outpatient (CLI) | payer OTHER ==
[~2024-01-28] MED LIST changes: -TAMS0.4C36 PO; +TAMS0.4C39 PO
[2024-01-28 08:19] LABS: Urine Bacteria None Seen /hpf (None Seen)
[2024-01-28 08:26] LABS: Basophils # (auto) 0.1 10 ^3/uL (0-0.2); Neutrophils # (auto) 3.6 10 ^3/uL (1.6-8.6); Nucleated Red Blood Cells % 0.1 %; Red Blood Cells 5.16 10^6/uL (4.5-5.90); Red Cell Distribution Width 17.2 % (11.8-14.3)
[2024-01-28 08:28] LABS: Basophils % (auto) 1.1 % (0.0-2.0); Eosinophils # (auto) 0.2 10 ^3/uL (0-0.8); Eosinophils % (auto) 2.6 % (0.0-7.0); Hematocrit 41.8 % (41.0-53.0); Hemoglobin 13.4 g/dL (13.5-17.5); Lymphocytes # (auto) 1.4 10 ^3/uL (0.4-5.4); Lymphocytes % (auto) 23.6 % (10.0-50.0); Mean Corpuscular Hgb Conc. 32.2 g/dL (32.0-36.0); Mean Corpuscular Volume 80.9 fL (80.0-100.0); Monocytes # (auto) 0.6 10 ^3/uL (0-1.3); Monocytes % (auto) 10.7 % (0.0-12.0); Platelet Count (auto) 238 10^3/uL (140-450); White Blood Cell 5.8 10^3/uL (4.4-10.8)
[2024-01-28 08:42] LABS: Alanine Aminotransferase 27 U/L (7-40); Albumin 4.5 g/dL (3.2-4.8); Alkaline Phosphatase 55 U/L (46-116); Anion Gap 8 (5-15); Aspartate Aminotransferase 15 U/L (13-40); BUN/Creatinine Ratio 12.7 (10.0-20.0); Bilirubin, Total 0.7 mg/dL (0.2-1.0); Blood Urea Nitrogen 13 mg/dL (9-23); Calcium 10.3 mg/dL (8.7-10.4); Carbon Dioxide 26 mmol/L (20-31); Chloride 102 mmol/L (98-107); Cholesterol 117 mg/dL (< 200); Glucose 143 mg/dL (74-106); HDL Cholesterol 37 mg/dL (40-59); LDL Cholesterol 73 mg/dL (< 100); Sodium 136 mmol/L (136-145); Total Protein 7.3 g/dL (5.7-8.2); Triglycerides 125 mg/dL (< 150)
[2024-01-28 13:11] LABS: Urine Blood Negative /uL (Negative); Urine Clarity Clear (Clear); Urine Color Yellow (Yellow); Urine Mucus FEW (None Seen); Urine Protein, UAD 1+ (Negative); Urine Urobilinogen Normal (Negative); Urine WBC 2 /hpf (0 - 3); Urine pH 5.5 (5.0-9.0)
== END | disposition home or self-care (01) ==
LOC: LAB 08:00
PROVIDERS: ATTEND Student in an Organized Health Care Education/Training Program
DX: I10 Essential (primary) hypertension (principal); E11.9 Type 2 diabetes mellitus without complications
CPT/HCPCS: 36415; 80053; 80061; 81001; 83036; 84443; 85025

== ENCOUNTER → 2024-05-30 | Outpatient (CLI) | payer OTHER ==
[2024-05-30 10:07] LABS: Urine Bacteria None Seen /hpf (None Seen)
[2024-05-30 10:44] LABS: Urine Blood Negative /uL (Negative); Urine Clarity Clear (Clear); Urine Color Colorless (Yellow); Urine Protein, UAD Negative (Negative); Urine Specific Gravity 1.004 (1.001-1.035); Urine Squamous Epithelial Cell None Seen /hpf (<5); Urine Urobilinogen Normal (Negative); Urine WBC 1 /HPF (0-3); Urine pH 5.5 (5.0-9.0)
[2024-05-30 10:50] LABS: Basophils # (auto) 0 10 ^3/uL (0-0.2); Basophils % (auto) 0.8 % (0.0-2.0); Eosinophils # (auto) 0.1 10 ^3/uL (0-0.8); Hemoglobin 12.5 g/dL (13.5-17.5); Lymphocytes # (auto) 1.2 10 ^3/uL (0.4-5.4); Monocytes # (auto) 0.5 10 ^3/uL (0-1.3)
[2024-05-30 10:53] LABS: Eosinophils % (auto) 1.3 % (0.0-7.0); Lymphocytes % (auto) 21.2 % (10.0-50.0); Mean Corpuscular Hgb Conc. 33.7 g/dL (32.0-36.0); Mean Corpuscular Volume 80.2 fL (80.0-100.0); Monocytes % (auto) 8.7 % (0.0-12.0); Neutrophils # (auto) 3.7 10 ^3/uL (1.6-8.6); Nucleated Red Blood Cells % 0.1 %; Platelet Count (auto) 224 10^3/uL (140-450); Red Blood Cells 4.61 10^6/uL (4.5-5.90); Red Cell Distribution Width 16.2 % (11.8-14.3); White Blood Cell 5.5 10^3/uL (4.4-10.8)
[2024-05-30 11:03] LABS: Creatinine, Urine 22.83 mg/dL (30.0-125.0)
[2024-05-30 11:09] LABS: Alanine Aminotransferase 17 U/L (7-40); Albumin 4.7 g/dL (3.2-4.8); Alkaline Phosphatase 54 U/L (46-116); Anion Gap 9 (5-15); Aspartate Aminotransferase 14 U/L (13-40); BUN/Creatinine Ratio 18.3 (10.0-20.0); Blood Urea Nitrogen 17 mg/dL (9-23); Calcium 10.1 mg/dL (8.7-10.4); Carbon Dioxide 23 mmol/L (20-31); Chloride 102 mmol/L (98-107); Potassium 4.1 mmol/L (3.5-5.1); Total Protein 7.1 g/dL (5.7-8.2)
[2024-05-30 11:11] LABS: Bilirubin, Total 0.7 mg/dL (0.2-1.0)
[2024-05-30 11:18] LABS: Glucose 121 mg/dL (74-106); Sodium 134 mmol/L (136-145)
[2024-05-30 12:16] LABS: Triglycerides 74 mg/dL (< 150)
[2024-05-30 12:17] LABS: LDL Cholesterol 59 mg/dL (< 100)
[2024-05-30 12:18] LABS: Cholesterol 109 mg/dL (< 200)
[2024-05-30 12:19] LABS: HDL Cholesterol 36 mg/dL (40-59)
== END | disposition home or self-care (01) ==
LOC: LAB 09:55
PROVIDERS: ATTEND Student in an Organized Health Care Education/Training Program
DX: N40.0 Benign prostatic hyperplasia without lower urinary tract symptoms (principal); I10 Essential (primary) hypertension; E11.9 Type 2 diabetes mellitus without complications
CPT/HCPCS: 36415; 80053; 80061; 81001; 82043; 82570; 83036; 84153; 84443; 85025

== ENCOUNTER → 2024-07-25 | Outpatient (CLI) | payer OTHER | END | disposition home or self-care (01) | LOC: LAB 11:21 | PROVIDERS: ATTEND Urology | DX: R97.20 Elevated prostate specific antigen [PSA] (principal) | CPT/HCPCS: 84153 ==

== ENCOUNTER 2024-08-15 06:05 | Day surgery (SDC) | payer OTHER ==
[2024-08-10 11:37] LABS: Urine Bacteria None Seen /hpf (None Seen)
[2024-08-10 11:47] LABS: Urine Blood TRACE /uL (Negative); Urine Clarity Clear (Clear); Urine Color Light-Yellow (Yellow); Urine Protein, UAD TRACE (Negative); Urine Squamous Epithelial Cell None Seen /hpf (<5); Urine Urobilinogen Normal (Negative); Urine WBC < 1 /HPF (0-3); Urine pH 5.5 (5.0-9.0)
[2024-08-10 11:48] LABS: Basophils # (auto) 0.1 10 ^3/uL (0-0.2); Eosinophils # (auto) 0.2 10 ^3/uL (0-0.8); Eosinophils % (auto) 3.1 % (0.0-7.0); Hematocrit 38.6 % (41.0-53.0); Hemoglobin 12.7 g/dL (13.5-17.5); Lymphocytes % (auto) 18.3 % (10.0-50.0); Mean Corpuscular Hemoglobin 26.3 pg (28.0-32.0); Mean Corpuscular Hgb Conc. 32.8 g/dL (32.0-36.0); Monocytes # (auto) 0.5 10 ^3/uL (0-1.3); Monocytes % (auto) 8.6 % (0.0-12.0); Neutrophils # (auto) 3.9 10 ^3/uL (1.6-8.6); Nucleated Red Blood Cells % 0.1 %; Platelet Count (auto) 240 10^3/uL (140-450); Red Blood Cells 4.83 10^6/uL (4.5-5.90); Red Cell Distribution Width 16.3 % (11.8-14.3); White Blood Cell 5.6 10^3/uL (4.4-10.8)
[2024-08-10 12:02] LABS: INR 1.08 (0.9-1.15); Partial Thromboplastin Time 33.1 SEC (24.5-34.5); Prothrombin Time 11.4 sec (9.3-11.8)
[2024-08-10 12:13] LABS: Alanine Aminotransferase 19 U/L (7-40); Albumin 4.6 g/dL (3.2-4.8); Alkaline Phosphatase 63 U/L (46-116); Anion Gap 9 (5-15); Aspartate Aminotransferase 15 U/L (13-40); BUN/Creatinine Ratio 11.7 (10.0-20.0); Bilirubin, Total 0.5 mg/dL (0.2-1.0); Blood Urea Nitrogen 12 mg/dL (9-23); Calcium 10.1 mg/dL (8.7-10.4); Carbon Dioxide 26 mmol/L (20-31); Chloride 103 mmol/L (98-107); Glucose 101 mg/dL (74-106); Potassium 4.1 mmol/L (3.5-5.1); Sodium 138 mmol/L (136-145); Total Protein 7.1 g/dL (5.7-8.2)
[~2024-08-15] VITALS: Ht 167.6 cm; Wt 71.7 kg
[~2024-08-15 06:05] MED LIST changes: -FIN5T; +LOSA-535 PO; -TAMS0.4C39 PO
[2024-08-15] MEDS ORDERED: CIPROFLOXACIN 400MG/200ML 200 ML IV ONE (06:31)
[2024-08-15] MEDS ORDERED: MIDAZOLAM HCL 2MG/2ML 2ml VIAL (1mg/ml) ONE (07:24)
[2024-08-15] MEDS ORDERED: fentaNYL CITRATE 100 MCG/2 ML VL ONE (07:24)
[2024-08-15] MEDS ORDERED: PROPOFOL 10 MG/ML 20 ML IV ONE (07:57)
[2024-08-15] MEDS ORDERED: DexAMETHasone SOD PHOS 10MG/1ML VIAL INJ ONE (07:57)
[2024-08-15] MEDS ORDERED: HYDROmorphone HCL 2 MG/ML VL/or syr IV PRN (08:15)
[2024-08-15] MEDS ORDERED: ONDANSETRON HCL 4 MG/2 ML VIAL IV ONE (08:15)
[2024-08-15] MEDS ORDERED: hydrALAZINE HCL 20 MG/ML VL IV PRN (08:15)
[2024-08-15] MEDS ORDERED: MIDAZOLAM HCL 2MG/2ML 2ml VIAL (1mg/ml) IV PRN (08:15)
[2024-08-15] MEDS ORDERED: ACCU-CHEK COMFORT CURVE STRIP VI ONE (08:15)
[2024-08-15] MEDS ORDERED: ePHEDrine SULFATE 50 MG/ML AMP IV PRN (08:15)
--- NOTE | 2024-08-15 08:23 | DVHNC2 ---
Procedure - OPERATIVE REPORT Pre-op. Diagnosis: BPH with Obstruction Post-op. Diagnosis: Same as pre-op diagnosis Operation: Urolift - Prostate Implant Anesthesia: General Indications: Patient suffers from obstructive voiding dysfunction. Treatment options were discussed including ongoing therapy with pharmaceutical such as alpha blocking agents (Flomax/UroXatral/Rapaflow), or Prostate shrinking agents (proscar/Avodart); In-office prostate therapies (TUMT/Indigo Laser/TUNA); or Outpatient procedures such as Green light laser photovaporization/Enucleation/TURP) as well urolift. Corresponding advantages and disadvantages were also discussed. Questions were addressed. Complication include but nt limited to infection, bleeding, damage to the surrounding structures, ejaculatory dysfunction, erectile dysfunction, need for secondary procedures were discussed. Informed consent was obtained. Details of Procedure: Patient was brought to the operating room. After administration of anesthesia, he was placed in the lithotomy position. The area of genitalia was prepped and draped in standard surgical and sterile fashion. The 20 F access sheath was introduced into the bladder under direct vision. Bladder was emptied and the Urolift device was introduced. Five implants were permanently placed at the 10 a& 2 O'clock positions near the bladder neck and apical tissue to lift the kissing lateral lobes out of the way and to create a channel in the prostatic urethra and the urethral bladder neck opening. The implants were delivered through a needle that comes out of the Urolift delivery device and into the prostate. Patient tolerated the procedure well. He was awaken and taken to RR in stable condition. All instrument counts were correct at the end of the procedure. Specimens: None Complications: None Findings: Notes: Visit Code: Procedure Codes: 69551 CYSTOURETHRO W/IMPLANT. 31924 CYSTOURETHRO W/ADDL IMPLANT. Units: 4.00. NED PORTILLO MD August 15, 2024 08:23
--- NOTE | 2024-08-15 08:24 | DVHDS2 ---
New Physician D'charge PN Admitting Diagnosis Admitting Diagnosis BPH Discharge Diagnosis Same Operations or Procedures UroLift prostate implantation Reason(s) For Hospitalization Surgery Treatment Plan Discharge Condition of Discharge Good Disposition Home Discharge Instructions Diet: Regular Activity: Light activity Activity comment: As tolerated Medications: Given Follow Up Care Follow Up/Referral: Two weeks follow up Discharge Statement: "Patient was advised to return to the ER or call 911 if any headaches, dizziness, shortness of breath, chest pain, abdominal pain, bleeding, fevers, or worsening of medical condition. Patient was counseled about treatment plan, medications, possible side effects, patientverbalized understanding. All questions were answered to the best of my ability. This discharge took greater then 30 minutes in planning, reviewing documentation, counseling the patient, and discussing with other team members." NED PORTILLO MD August 15, 2024 08:24
[2024-08-15 08:35] VITALS: PULSE 74; RESP 16; TEMP 97.2; O2SAT 100
[2024-08-15] MEDS: MORPHINE SULFATE 4 MG/ML SYR/VIAL IV PRN (08:59)
[2024-08-15 09:20] VITALS: BP 120/49; PULSE 69; RESP 12; O2SAT 97
== END 2024-08-15 10:05 | disposition home or self-care (01) ==
LOC: SUR 06:05
PROVIDERS: ATTEND Urology
DX: N40.1 Benign prostatic hyperplasia with lower urinary tract symptoms (principal); I10 Essential (primary) hypertension; I25.10 Atherosclerotic heart disease of native coronary artery without angina pectoris; E11.9 Type 2 diabetes mellitus without complications; Z79.899 Other long term (current) drug therapy; Z95.820 Peripheral vascular angioplasty status with implants and grafts; Z98.890 Other specified postprocedural states; Z82.49 Family history of ischemic heart disease and other diseases of the circulatory system
CPT/HCPCS: 36415; 52441; 52442; 80053; 81001; 82962; 85025; 85610; 85730; 87086; A4344; J0744; J1100; J2250; J2270; J2704; J3010; J7030; L8699

== ENCOUNTER 2024-09-07 08:08 | Outpatient (CLI) | payer OTHER ==
[2024-09-07 08:25] LABS: Basophils # (auto) 0.1 10 ^3/uL (0-0.2); Basophils % (auto) 1.3 % (0.0-2.0); Eosinophils # (auto) 0.1 10 ^3/uL (0-0.8); Eosinophils % (auto) 1.8 % (0.0-7.0); Hematocrit 37.7 % (41.0-53.0); Hemoglobin 12.5 g/dL (13.5-17.5); Lymphocytes % (auto) 19.3 % (10.0-50.0); Mean Corpuscular Hemoglobin 26.4 pg (28.0-32.0); Mean Corpuscular Volume 79.9 fL (80.0-100.0); Monocytes # (auto) 0.6 10 ^3/uL (0-1.3); Monocytes % (auto) 10.7 % (0.0-12.0); Neutrophils # (auto) 3.5 10 ^3/uL (1.6-8.6); Neutrophils % (auto) 66.9 % (37.0-80.0); Platelet Count (auto) 244 10^3/uL (140-450); Red Blood Cells 4.72 10^6/uL (4.5-5.90); Red Cell Distribution Width 17.2 % (11.8-14.3); White Blood Cell 5.3 10^3/uL (4.4-10.8)
[2024-09-07 11:21] LABS: Anion Gap 10 (5-15); Carbon Dioxide 23 mmol/L (20-31); Chloride 104 mmol/L (98-107); Potassium 4.2 mmol/L (3.5-5.1); Sodium 137 mmol/L (136-145)
[2024-09-07 11:22] LABS: Calcium 9.5 mg/dL (8.7-10.4)
[2024-09-07 11:26] LABS: Glucose 100 mg/dL (74-106)
[2024-09-07 11:27] LABS: BUN/Creatinine Ratio 12.6 (10.0-20.0); Blood Urea Nitrogen 14 mg/dL (9-23)
[2024-09-07 15:05] LABS: Creatinine, Urine 63.43 mg/dL (30.0-125.0)
[2024-09-07 15:49] LABS: Triglycerides 98 mg/dL (< 150)
[2024-09-07 15:50] LABS: LDL Cholesterol 64 mg/dL (< 100)
[2024-09-07 15:51] LABS: Cholesterol 114 mg/dL (< 200)
[2024-09-07 15:55] LABS: HDL Cholesterol 36 mg/dL (40-59)
== END 2024-09-07 17:00 | disposition home or self-care (01) ==
LOC: LAB 08:08
PROVIDERS: ATTEND Student in an Organized Health Care Education/Training Program
DX: I10 Essential (primary) hypertension (principal); E78.5 Hyperlipidemia, unspecified; E55.9 Vitamin D deficiency, unspecified; E11.9 Type 2 diabetes mellitus without complications
CPT/HCPCS: 36415; 80048; 80061; 82043; 82570; 83036; 85025

== ENCOUNTER 2024-10-03 11:04 | Outpatient (CLI) | payer OTHER | END 2024-10-03 17:48 | disposition home or self-care (01) | LOC: LAB 11:04 | PROVIDERS: ATTEND Licensed Practical Nurse | DX: Z12.11 Encounter for screening for malignant neoplasm of colon (principal) | CPT/HCPCS: 82274 ==

== ENCOUNTER 2024-11-13 04:14 | Emergency (ER) | payer OTHER ==
[~2024-11-13] VITALS: Ht 170.2 cm; Wt 73.7 kg
[2024-11-13 04:16] VITALS: TEMP 97.9
[2024-11-13] MEDS: IOHEXOL 350 MG/ML 100ML IJ ONE (04:54)
--- NOTE | 2024-11-13 05:02 | ED.PDOC ---
History of Present Illness HPI Comments 74 y/o Somali-speaking M, with a history of diverticulitis, presents with c/c nonradiating, LLQ abdominal pain. Patient states on symptoms feeling similar to previous diverticulitis flare-ups. Denies any nausea, vomiting, diarrhea, urinary symptoms, fever, chills, or further associated symptoms. Chief Complaint: Abdominal Pain Time Seen by MD: 04:30 Primary Care Provider: CASTRO Reviewed Notes: Nurses Notes, Medications, Allergies Allergies: Coded Allergies: Sulfa Antibiotics (Unverified Allergy, Intermediate, hives, 06/03/23) Home Meds Active Scripts Nitroglycerin (NTROSTAT SUBLINGUAL) 0.4 Mg Sl, 0.4 MG SL Q5MINP PRN for 30 Days, #30 TAB Prov:RIK SOTO RESIDENT 02/24/23 Reported Medications Losartan Potassium (Losartan Potassium) 100 Mg Tab, 100 MG PO DAILY, TAB 08/10/24 Amlodipine Besylate (Amlodipine Besylate) 10 Mg Tab, 10 MG PO DAILY, TAB 01/26/23 Rosuvastatin Calcium (Rosuvastatin Calcium) 40 Mg Tab, 40 MG PO DAILY, TAB 01/26/23 Metoprolol Succinate (Toprol Xl) 50 Mg Tab, 50 MG PO DAILY, TAB 01/26/23 Metformin Hydrochloride (Metformin Hcl) 1,000 Mg Tab, 1000 MG PO DAILY, TAB 01/26/23 Clopidogrel Bisulfate (Plavix) 75 Mg Tab, 75 MG PO DAILY, TAB 01/26/23 Aspirin (Aspir-81) 81 Mg Tab, 81 MG PO DAILY, TAB 01/26/23 Information Source: Patient Mode of Arrival: Ambulatory Severity: Moderate Timing: Hours Duration: Since onset Prehospital treatment: None Past Medical History PAST MEDICAL HISTORY: CAD, DM, High Lipids, HTN Past Medical History (Other): diverticulitis Surgical History: PTCA Family History Family History: Unknown Social History Smoker: Non-Smoker Alcohol: Denies ETOH Use Drugs: Denies Drug Use Lives In: Home All Other Systems: Reviewed and Negative (Comprehensive review of systems are negative unless otherwise stated in HPI) Physical Exam General Appearance: Moderate Distress, Normal HEENT: Normal ENT Inspection, Pharynx Normal, TMs Normal Neck: Full Range of Motion, Non-Tender, Normal, Normal Inspection Respiratory: Chest Non-Tender, Lungs Clear, No Accessory Muscle Use, No Respiratory Distress, Normal Breath Sounds Cardiovascular: No Edema, No JVD, No Murmur, No Gallop, Normal Peripheral Pulses, Regular Rate/Rhythm Breast Exam: Deferred Gastrointestinal: No Organomegaly, Non Tender, No Pulsatile Mass, Normal Bowel Sounds, Soft Genitalia: Deferred Pelvic: Deferred Rectal: Deferred Extremities: No calf tenderness, Normal capillary refill, Normal inspection, Normal range of motion, Non-tender, No pedal edema Musculoskeletal : Apperance: Normal Neurologic: Alert, sock liner II-XII nml as Tested, No Motor Deficits, Normal Affect, Normal Mood, No Sensory Deficits Cerebellar Function: Normal Reflexes: Normal Skin: Dry, Normal Color, Warm Peripheral Pulses: 3+ Radial (R), 3+ Radial (L) Lymphatic: No Adenopathy Was a procedure done? Was a procedure done?: No Differential Dx Considerations may include: Diverticulitis, PID, UTI, viral syndrome, among others X-Ray, Labs, Meds, VS Vital Signs Date Time Temp Pulse Resp B/P (MAP) Pulse Ox O2 Delivery O2 Flow Rate FiO2 11/13/24 04:16 97.9 70 16 154/69 98 97.9 Lab Test 11/13/24 08:20 11/13/24 04:43 Range/Units Urine Color Light-yellow Yellow Urine Clarity Clear Clear Urine pH 5.5 5.0-9.0 Urine Specific [place] 1.031 1.001-1.035 Urine Protein Negative Negative Urine Ketones Negative Negative Urine Blood Trace H Negative /uL Urine Nitrite Negative Negative Urine Bilirubin Negative Negative Urine Urobilinogen Normal Negative mg/dL Urine Leukocyte Esterase Negative Negative /uL Urine RBC 1 0 - 3 /hpf Urine Microscopic WBC 1 0-3 /HPF Urine Squamous Epithelial Cells None seen <5 /hpf Urine Bacteria None seen None Seen /hpf Urine Glucose Normal Normal mg/dL White Blood Count 7.9 4.4-10.8 10^3/uL Red Blood Count 4.90 4.5-5.90 10^6/uL Hemoglobin 14.1 13.5-17.5 g/dL Hematocrit 40.9 L 41.0-53.0 % Mean Corpuscular Volume 83.6 80.0-100.0 fL Mean Corpuscular Hemoglobin 28.8 28.0-32.0 pg Mean Corpuscular Hemoglobin Concent 34.5 32.0-36.0 g/dL Red Cell Distribution Width 17.9 H 11.8-14.3 % Platelet Count 217 140-450 10^3/uL Mean Platelet Volume 8.9 6.9-10.8 fL Neutrophils (%) (Auto) 72.5 37.0-80.0 % Lymphocytes (%) (Auto) 14.2 10.0-50.0 % Monocytes (%) (Auto) 9.6 0.0-12.0 % Eosinophils (%) (Auto) 2.6 0.0-7.0 % Basophils (%) (Auto) 1.1 0.0-2.0 % Neutrophils # (Auto) 5.7 1.6-8.6 10 ^3/uL Lymphocytes # (Auto) 1.1 0.4-5.4 10 ^3/uL Monocytes # (Auto) 0.8 0-1.3 10 ^3/uL Eosinophils # (Auto) 0.2 0-0.8 10 ^3/uL Basophils # (Auto) 0.1 0-0.2 10 ^3/uL Nucleated Red Blood Cells 0.1 % Sodium Level 135 L 136-145 mmol/L Potassium Level 3.9 3.5-5.1 mmol/L Chloride Level 102 98-107 mmol/L Carbon Dioxide Level 22 20-31 mmol/L Anion Gap 11 5-15 Blood Urea Nitrogen 15 9-23 mg/dL Creatinine 1.05 0.700-1.30 mg/dL Glomerular Filtration Rate Calc 75 >90 mL/min BUN/Creatinine Ratio 14.3 10.0-20.0 Serum Glucose 132 H 74-106 mg/dL Calcium Level 9.3 8.7-10.4 mg/dL Total Bilirubin 0.6 0.2-1.0 mg/dL Aspartate Amino Transferase (AST) 19 13-40 U/L Alanine Aminotransferase (ALT) 18 7-40 U/L Alkaline Phosphatase 56 46-116 U/L Total Protein 6.8 5.7-8.2 g/dL Albumin 4.6 3.2-4.8 g/dL Current Medications Medications (Trade) Dose Ordered Sig/Steff Route Start Time Stop Time Status Last Admin Sodium Chloride 1,000 ml @ 1,000 mls/hr Q1H ONCE IVB 11/13/24 04:45 11/13/24 05:44 DC 11/13/24 05:07 Patient alert. Complaining of abdominal discomfort. Vitals stable. Answering questions. Ambulating. CT scan of the abdomen reviewed does not show any acute process. WBC within normal limits. Hemoglobin within normal limits. Establish intravenous access. Was given fluids. Possible gastritis. Was given prescription of Protonix. Explained to the patient. Was told to follow up with his primary care physician. Was told to come back if there is any problem. Time of 1ST Reevaluation: 05:00 Reevaluation 1ST: Unchanged Time of 2ND Reevaluation: 09:32 Reevaluation 2ND: Improved Patient Education/Counseling: Diagnosis, Treatment, Need For Follow Up Family Education/Counseling: No Family Present SEPSIS Sepsis Screen Date sepsis recognized/suspect: Nov 13, 2024 Time Sepsis recognized/suspect: 418 Recent Procedure: No On Antibiotic Therapy: No Respiratory Rate >20: No Heart Rate >90: No Temp<36 C (96.8 F) or >38.3 C: No SBP <90 or MAP <65 mmHG: No New Acute Mental Status Change: No Is the patient on CPAP, BIPAP,: No Physician Orders Ct Ab Pel With Iv Con Only (11/13/24 04:33) Vital Signs Date Time Temp Pulse Resp B/P (MAP) Pulse Ox O2 Delivery O2 Flow Rate FiO2 11/13/24 04:16 97.9 70 16 154/69 98 97.9 Laboratory Tests Test 11/13/24 04:43 White Blood Count 7.9 10^3/uL (4.4-10.8) Medications Medications Dose Ordered Sig/Steff Route Start Time Stop Time Status Last Admin Dose Admin Sodium Chloride 1,000 ml @ 1,000 mls/hr Q1H ONCE IVB 11/13/24 04:45 11/13/24 05:44 DC 11/13/24 05:07 Departure 1 Departure Time of Disposition: 09:33 Impression: Primary Impression: Abdominal pain of unknown etiology Additional Impression: Gastritis Qualified Codes: K29.00 - Acute gastritis without bleeding Disposition: 01 HOME / SELF CARE / HOMELESS Condition: Good e-Prescriptions Pantoprazole Sodium Sesquihydr (Protonix) 40 Mg Tab 40 MG PO DAILY for 10 Days, #10 TAB Prov: SHIVANI BRAND MD 11/13/24 Discharged With: Self Critical Care Note Critical Care Time?: No Stability Stability form required: No Heart Score Heart Score: Heart Score Response (Comments) Value History N/A 0 EKG N/A 0 Age N/A 0 Risk Factors N/A 0 Troponin N/A 0 Total 0 I personally scribed for MOE PERRIN MD ([email or web address]) on 11/13/24 at 05:02. Electronically submitted by Eriberto Franco [email or web address]). MOE PERRIN MD Nov 13, 2024 05:02 SHIVANI BRAND MD Nov 13, 2024 09:34
[2024-11-13] MEDS: SODIUM CHLORIDE 0.9% 1,000 ML IVB ONE (05:07)
[2024-11-13 05:11] LABS: Hematocrit 40.9 % (41.0-53.0); Hemoglobin 14.1 g/dL (13.5-17.5); Mean Corpuscular Hemoglobin 28.8 pg (28.0-32.0); Mean Corpuscular Volume 83.6 fL (80.0-100.0); Nucleated Red Blood Cells % 0.1 %
[2024-11-13 05:22] LABS: Alanine Aminotransferase 18 U/L (7-40); Albumin 4.6 g/dL (3.2-4.8); Alkaline Phosphatase 56 U/L (46-116); Anion Gap 11 (5-15); BUN/Creatinine Ratio 14.3 (10.0-20.0); Bilirubin, Total 0.6 mg/dL (0.2-1.0); Blood Urea Nitrogen 15 mg/dL (9-23); Calcium 9.3 mg/dL (8.7-10.4); Carbon Dioxide 22 mmol/L (20-31); Chloride 102 mmol/L (98-107); Potassium 3.9 mmol/L (3.5-5.1); Total Protein 6.8 g/dL (5.7-8.2)
[2024-11-13 05:23] LABS: Glucose 132 mg/dL (74-106); Sodium 135 mmol/L (136-145)
--- NOTE | 2024-11-13 06:17 | DVH ---
Exam: CT CT AB PEL WITH IV CON ONLY History: LLQ pain COMPARISON: CT CT AB PEL WO CON-NO ORAL OR IV on DOS: 03/26/23, CT CT AB PEL WO CON-NO ORAL OR IV on DOS: 06/18/22, RHAN2 on DOS: 09/22/21 Technique: Multidetector spiral CT of the abdomen and pelvis was performed from lung bases to pubic s ymphysis. Intravenous contrast was administered during this examination. Portal venous imaging was o btained. Axial, coronal and sagittal multiplanar reformats were performed by the technologist on a [employer] workstation. Radiation Dose : 1. Abdomen/Pelvis: CTDIvol 12.47 mGy, DLP 683.56 mGy*cm. CONTRAST: Type of contrast: Omnipaque 350 Contrast injected: 100 ml Findings: Lung Bases: No acute or significant lung base finding. Normal heart size. No pleural or pericardial effusion. Liver: The liver is normal in size. No focal lesions. Normal hepatic vascular enhancement. Gallbladder and Biliary Tree: Unremarkable Spleen: Unremarkable Pancreas: The pancreas is normal in appearance without focal lesions or abnormal enhancement. Adrenal Glands: Unremarkable Kidneys: No nephrolithiasis or hydronephrosis. Bilateral renal cortical cysts measure up to 4.1 cm. Bladder: Unremarkable Bowel: The stomach is grossly normal in appearance. Small bowel and colon are normal in caliber and d istribution. Diverticulosis coli without CT evidence of acute diverticulitis. The appendix is normal. Ascites: Absent Lymphadenopathy: No mesenteric, retroperitoneal or periportal lymphadenopathy. Abdominal Wall and Mesentery: Unremarkable. Vasculature: The visualized abdominal aorta is normal in size and caliber. Atherosclerotic vascular c alcifications. Abdominal and pelvic vessels demonstrate normal enhancement. Pelvic Organs: Prostate is mildly enlarged, measuring 4.6 cm transverse, containing brachytherapy see ds. Bilateral inguinal hernias, containing fat on the right and partially visualized fluid density on the left. Musculoskeletal: No aggressive focal bony lesions, acute fractures or dislocation. IMPRESSION: 1. No acute abdominal or pelvic finding. 2. Diverticulosis coli without CT evidence of acute diverticulitis. 3. Prostatomegaly and brachytherapy seeds. 4. Bilateral inguinal hernias, containing fat on the right and partially visualized fluid density on the left. Radiation optimization: All CT scans at this facility use at least one of these dose optimization abbi hniques: automated exposure control mA and/or kV adjustment per patient size (includes targeted exam s where dose is matched to clinical indication) or iterative reconstruction.
[2024-11-13 08:54] LABS: Urine Protein, UAD Negative (Negative)
[2024-11-13] MEDS ORDERED: PANT40TA2 PO (09:34)
[2024-11-13 09:45] VITALS: BP 142/67; PULSE 74; RESP 18; O2SAT 97
== END 2024-11-13 09:47 | disposition home or self-care (01) ==
LOC: ER 04:14
DX: K29.70 Gastritis, unspecified, without bleeding (principal); I10 Essential (primary) hypertension; E11.9 Type 2 diabetes mellitus without complications; I25.10 Atherosclerotic heart disease of native coronary artery without angina pectoris; Z79.82 Long term (current) use of aspirin; Z79.84 Long term (current) use of oral hypoglycemic drugs; Z79.899 Other long term (current) drug therapy; Z88.2 Allergy status to sulfonamides
CPT/HCPCS: 36415; 74177; 80053; 81001; 85025; 96360; 99285; J7030; Q9967

== ENCOUNTER 2024-12-11 08:25 | Outpatient (CLI) | payer MEDICAID ==
[~2024-12-11 08:25] MED LIST changes: +PANT40TA2 PO
[2024-12-11 09:31] LABS: Hematocrit 41.8 % (41.0-53.0); Hemoglobin 14.1 g/dL (13.5-17.5); Mean Corpuscular Hemoglobin 28.9 pg (28.0-32.0); Mean Corpuscular Volume 85.6 fL (80.0-100.0); Nucleated Red Blood Cells % 0.0 %
[2024-12-11 09:37] LABS: Alanine Aminotransferase 21 U/L (7-40); Albumin 4.4 g/dL (3.2-4.8); Alkaline Phosphatase 48 U/L (46-116); Anion Gap 10 (5-15); BUN/Creatinine Ratio 9.3 (10.0-20.0); Bilirubin, Total 0.6 mg/dL (0.2-1.0); Blood Urea Nitrogen 10 mg/dL (9-23); Calcium 9.3 mg/dL (8.7-10.4); Carbon Dioxide 26 mmol/L (20-31); Chloride 100 mmol/L (98-107); Potassium 4.5 mmol/L (3.5-5.1); Total Protein 7.1 g/dL (5.7-8.2)
[2024-12-11 09:39] LABS: Glucose 107 mg/dL (74-106); Sodium 136 mmol/L (136-145)
== END 2024-12-11 17:00 | disposition home or self-care (01) ==
LOC: LAB 08:25
PROVIDERS: ATTEND Licensed Practical Nurse
DX: E11.9 Type 2 diabetes mellitus without complications (principal); D50.9 Iron deficiency anemia, unspecified
CPT/HCPCS: 36415; 80053; 83036; 85025

== ENCOUNTER 2025-02-01 08:07 | Outpatient (CLI) | payer MEDICAID ==
[~2025-02-01] VITALS: Ht 162.6 cm; Wt 73.9 kg
[2025-02-01] MEDS: REGADENOSON 0.4 MG/5 ML SYRG IV ONE ×2 (08:31→10:08)
--- NOTE | 2025-02-05 08:22 | DVHSR ---
APPROVED REPORT Exam: Nuclear Stress Test BMI: 0 Stress Test Details Stress Test: Pharmacologic stress testing performed using 0.4 mg of regadenoson per 5 mL given IV over 10 seconds. HR Resting HR: 55 bpm Max Heart Rate (APMHR): 147.123736 bpm Max HR Achieved: 87 bpm Target HR (85% APMHR): 124.120323 bpm % of APMHR: 59.18 Recovery HR: 63 bpm BP Resting BP: 127/49 mmHg Recovery BP: 124/69 mmHg ECG Resting ECG: Sinus Bradycardia Clinical Reason for Termination: Completed protocol Nurse Comments Received patient from Nuclear Medicine. Patient is A&O x4. For VS please refer back to stress test assessment documentation. Patient is connected to electronic device monitor. See Cardio- Neuro procedural notes for additional details. PIV flushes well. Reviewed POC and patient verbalizes understanding and consents to test. Stress ECG Conclusion lvef 66% mild fixed inferior wall defect image artifact no ischemia noted NM EXAM: Myocardial Perfusion REST/STRESS Imaging Protocol: Rest Tc-99m/Stress Tc-99m 1 day Resting Data Rest SPECT myocardial perfusion imaging was performed in supine position 60 minutes following the intravenous injection of 11.02 mCi of Tc-99m Sestamibi. Time of rest injection: 0835 Time of rest imagin Administration Route: IV Administration Site: Left Hand Pharmacologic Stress Pharmacologic stress test was performed by injecting Regadenoson 0.4 mg IV push followed by the intravenous injection of 30.4 mCi of Tc-99m Sestamibi. Time of stress injection: 1005 Time of stress imagin Administration Route: IV Administration Site: Left Hand Gated Stress SPECT was performed 70 minutes after stress injection. The images were gated to evaluate regional wall motion and calculate left ventricular ejection fraction. Nuclear Conclusion Nuclear Findings: negative for ischemia lvef 66% mild fixed inferior wall defect image artifact no ischemia noted
== END 2025-02-01 17:00 | disposition home or self-care (01) ==
LOC: XYW 08:07
PROVIDERS: ATTEND Internal Medicine
DX: I25.10 Atherosclerotic heart disease of native coronary artery without angina pectoris (principal)
CPT/HCPCS: 78452; 93017; A9500; J2785